=== PATIENT | male | born 1955 | race African-American/Black ===

== ENCOUNTER 2024-06-07 19:50 | Observation (INO) ==
[2024-06-07 20:55] LABS: BASOPHILS % (AUTO) 0.4 % (0.0-3.0); EOSINOPHILS % (AUTO) 0.8 % (0.0-7.0); HEMATOCRIT 47.9 % (42.0-52.0); HEMOGLOBIN 15.7 g/dl (14.0-18.0); IMMATURE GRANULOCYTE % (AUTO) 0.2 % (0.0-5.0); LYMPHOCYTES # (AUTO) 1.6 K/uL (0.60-3.4); LYMPHOCYTES % (AUTO) 32.1 (10.0-50.0); MEAN CORPUSCULAR HEMOGLOBIN 27.8 pg (27.0-31.0); MEAN CORPUSCULAR HGB CONC 32.8 (31.8-35.4); MEAN CORPUSCULAR VOLUME 84.9 fl (80.0-94.0); MONOCYTES # (AUTO) 0.4 K/uL (0.4-2.0); MONOCYTES % (AUTO) 8.2 (0-10); NEUTROPHILS # (AUTO) 2.9 K/ul (2.0-6.9); NEUTROPHILS % (AUTO) 58.3 % (42.2-75.2); PLATELET COUNT 260 10^3/uL (140-440); RDW COEFFICIENT OF VARIATION 12.9 % (11.6-14.8); RED BLOOD COUNT 5.64 10^6/ul (4.70-6.10); WHITE BLOOD COUNT 4.98 K/ul (4.2-10.2)
[2024-06-07 21:07] LABS: ALANINE AMINOTRANSFERASE 33.3 U/L (0-50); ALBUMIN 4.16 g/dL (3.5-5.0); ALKALINE PHOSPHATASE 75.9 U/L (56-119); ASPARTATE AMINO TRANSFERASE 26.2 U/L (17-59); BILIRUBIN,TOTAL 0.65 mg/dL (0.2-1.3); BLOOD UREA NITROGEN 30.2 mg/dL (9-20); CALCIUM 9.62 mg/dL (8.4-10.2); CARBON DIOXIDE 22.5 mmol/L (22-30.0); CREATININE 1.24 mg/dL (0.60-1.10); POTASSIUM 4.44 mmol/L (3.5-5.1); SODIUM 130.4 mmol/L (134.5-145); TOTAL PROTEIN 7.61 g/dL (6.3-8.2)
[2024-06-07 21:22] LABS: GLUCOSE 607.8 mg/dL (74-106)
[2024-06-07] MEDS: SODIUM CHLORIDE 1,000 ML IV ONE (21:22)
--- NOTE | 2024-06-07 21:27 | DI ---
EXAM: CHEST ONE-VIEW HISTORY: Chest pain and shortness of breath COMPARISON: Chest radiographs from 08/15/2022 FINDINGS: Calcified mediastinal lymph nodes are unchanged. The cardiomediastinal silhouette is laya l. The pulmonary vasculature is normal. No consolidating infiltrates are detected. No pneumothorac es or pleural effusions. IMPRESSION: 1. No acute cardiopulmonary disease. .
[2024-06-07 21:28] LABS: BILIRUBIN,URINE Negative (NEGATIVE); CLARITY,URINE Clear (CLEAR); COLOR,URINE Yellow (YELLOW); KETONES,URINE 1+ (NEGATIVE); LEUKOCYTE ESTERASE ,URINE Negative (NEGATIVE); NITRITE,URINE Negative (NEGATIVE); PH,URINE 5.5 (5-9); PROTEIN,URINE Negative (NEGATIVE); URINE, BLOOD Negative (NEGATIVE); UROBILINOGEN,URINE 0.2 (0.2)
[2024-06-07] MEDS: HUMULIN R (10ML) IVP STA (21:31)
[2024-06-07 21:35] LABS: GLUCOSE, URINE (UA) 3+ (NEGATIVE); SQUAMOUS EPITHELIAL CELL,UR 0-2 (0-5)
[2024-06-07] MEDS ORDERED: ZOFRAN SDV IVP PRN (21:44)
[2024-06-07] MEDS ORDERED: TYLENOL PO PRN (21:44)
[2024-06-07] MEDS ORDERED: DEXTROSE 50%-WATER ABBOJECT IVP PRN (21:44)
--- NOTE | 2024-06-07 21:44 | ED.PDOC ---
General ED Provider: Dr. MARK PARKER DO Chief Complaint: Diabetes Stated Complaint: 69-year-old male presents to the ER anxious because he has a recent diagnosis of diabetes. He was prescribed medications but there was some trouble getting them filled between the holiday season, whether and getting them to the appropriate pharmacies. The patient denies any chronic medical problems prior to this. Denies family history of diabetes or other acute cardiopulmonary processes. Denies recent illness or fever, headache chest pain shortness of breath, abdominal pain GI or issues. He does report polyuria and polydipsia. He is worried that he is not sure how to manage the diabetes on his own especially without the medications prescribed to him. He has not had any formal diabetes education regarding this. Time Seen by Provider: 06/07/24 20:13 Information Source: Patient Primary Care Provider: PAVAN MARTINEZ MD Nursing and Triage Documentation Reviewed and Agree: Yes What is Opioid Naive?: *Opioid Naive implies the patient is not already taking opioids or not chronically receiving opioids on a daily basis. *PRN dosing is not "usually" associated with tolerance. *Patients are at higher risk of over-sedation and aspiration. What is Opioid Tolerant?: *Opioid Tolerance implies less than the expected response to an opioid. *Acquired tolerance is defined by the patient taking 60mg of oral morphine daily (or equianalgesic dose of another opioid) for 1 week or more. *Often associated with chronic pain. *May take more than usual dose to achieve desired pain control. Review of Systems Review Of Systems Constitutional: Reports No symptoms All Other Systems: Reviewed and Negative [facility] Medical History Ulcer, stomach peptic K25.9 - Gastric ulcer, unspecified as acute or chronic, without hemorrhage or perforation (ICD-10) Family History Mother Kidney disorder Cancer Hypertension FATHER Cancer Hypertension Social History Smoking and tobacco status: Former smoker Physical Exam Physical Exam Appearance: Reports Well-appearing, No pain distress and Well-nourished Eyes: Reports JACKIE, EOMI and Conjunctiva clear ENT: Reports Oropharynx normal Neck: Supple Respiratory: Reports Airway patent and Respirations nonlabored Cardiovascular: Reports Pulses normal and Tachycardia GI/: Reports Soft and Nontender Musculoskeletal: Reports Normal strength and ROM intact Skin: Reports Warm, Dry and Normal color Neurological: Reports Sensation intact, Motor intact, Alert and Oriented Psychiatric: Reports Affect appropriate and Mood appropriate Interpretation EKG Interpretation EKG Interpretation By: ED Physician (Independently interpreted) Time of EKG #1: 21:02 Rate: Tachy Rhythm: Sinus Luebbering: NL ST Segment: Normal Interpretation: Nonischemic EKG Re-Evaluation Re-Evaluation Additional Comments: 69-year-old male recently diagnosed with diabetes presents to the ER concerned that he has not been able to get his medications and unsure how to manage his diabetes on his own. He is afebrile nontoxic doubt infectious etiology. No acute distress. He is tachycardic. Concern for DKA. Will rule this out with laboratory workup. Doubt other acute neurologic, cardiopulmonary or intra-abdominal processes. Labs reviewed and subsequently not consistent with DKA. He does not have an anion gap acidosis. He does have slight ketones in his serum. Nonetheless, his hyperglycemia will be treated with IV fluids and insulin. Given the complications of getting the proper supplies and education, I have recommended the patient be admitted for observation and the hospitalist services agreed and we appreciate their help in the management and education of this patient. Patient expresses understanding and are agreeable to this plan Course Course 06/07/24 20:25 06/07/24 20:25 Orders, Labs, Meds: Lab Review 06/07/24 06/07/24 20:25 21:19 WBC 4.98 RBC 5.64 Hgb 15.7 Hct 47.9 MCV 84.9 MCH 27.8 MCHC 32.8 RDW Coeff of Padmini 12.9 Plt Count 260 Immature Gran % (Auto) 0.2 Neut % (Auto) 58.3 Lymph % (Auto) 32.1 [place] % (Auto) 8.2 Eos % (Auto) 0.8 Baso % (Auto) 0.4 Neut # (Auto) 2.9 Lymph # (Auto) 1.6 [place] # (Auto) 0.4 Eos # (Auto) 0.0 Baso # (Auto) 0.0 Immature Gran # (Auto) 0.0 Sodium 130.4 L Potassium 4.44 Chloride 97.0 L Carbon Dioxide 22.5 Anion Gap 15.34 BUN 30.2 H Creatinine 1.24 H Estimated GFR (MDRD) 70.00 BUN/Creatinine Ratio 24.35 Glucose 607.8 H* Hemoglobin A1c 13.17 H Calcium 9.62 Total Bilirubin 0.65 AST 26.2 ALT 33.3 Alkaline Phosphatase 75.9 Total Protein 7.61 Albumin 4.16 Globulin 3.45 Albumin/Globulin Ratio 1.20 Urine Color Yellow Urine Clarity Clear Urine pH 5.5 Ur Specific [place] 1.010 Urine Protein Negative Urine Glucose (UA) 3+ H Urine Ketones 1+ H Urine Blood Negative Urine Nitrite Negative Urine Bilirubin Negative Urine Urobilinogen 0.2 Ur Leukocyte Esterase Negative Ur Squamous Epith Cells 0-2 Acetone, Qual Small Orders Category Date Time Status ADMIT OBSERVATION [PLACE PATIENT OBSERVATION] .TO ADMISSION 06/07/24 21:31 Active MEDSURG (MONITORED BED) EKG-(ED ONLY) Stat CARDIO 06/07/24 20:45 Completed TELEMETRY MONITORING TELE CARE 06/07/24 21:31 Active Glucose [ED ACCUCHECK ASSESSMENT] .ONCE EMERGENCY 06/07/24 21:20 Active ACETONE, QUALITATIVE Stat LAB 06/07/24 20:25 Completed CBC W/ AUTO DIFF Stat LAB 06/07/24 20:25 Completed CMP [COMPREHENSIVE METABOLIC PANEL] Stat LAB 06/07/24 20:25 Completed HEMOGLOBIN A1C Stat LAB 06/07/24 20:25 Completed URINALYSIS C & S IF INDICATED Stat LAB 06/07/24 21:19 Completed Insulin Regular, Human [Humulin R (10Ml)] Meds 06/07/24 21:23 Discontinued 15 unit IVP ONCE STA Sodium Chloride 0.9% [Sodium Chloride] 1,000 ml Meds 06/07/24 21:14 Active IV BOLUS CHEST, 1V AP ONLY Stat RADS 06/07/24 20:45 Completed Medications Generic Name Dose Route Start Last Admin Trade Name Freq PRN Reason Stop Dose Admin Sodium Chloride 1,000 mls @ 1,000 mls/hr 06/07/24 21:14 06/07/24 21:22 Sodium Chloride IV 06/07/24 22:13 1,000 mls/hr BOLUS ONE Administration Discontinued Medications Generic Name Dose Route Start Last Admin Trade Name Freq PRN Reason Stop Dose Admin Insulin Human Regular 15 unit 06/07/24 21:23 06/07/24 21:31 Insulin Regular, Human 100 Unit/Ml (10ml) Vial IVP 06/07/24 21:24 15 unit ONCE STA Administration Vital Signs: Temp Pulse Resp BP Pulse Ox 06/07/24 21:24 92 19 140/79 97 06/07/24 20:05 97.5 F L 112 H 18 134/101 H 97 Discharge Plan Discharge Patient Disposition: PLACED OBSERVATION Discharge Problem: Diabetes mellitus, new onset, Acute hyperglycemia Prescriptions: No Action tamsulosin 0.4 mg capsule 0.4 mg PO BEDTIME Qty: 30 2RF famotidine [Pepcid] 40 mg tablet 40 mg PO BID Qty: 30 0RF metformin 500 mg tablet 500 mg PO BID Qty: 60 2RF glucometer 1 unit Not Applicable DIRECTED Qty: 1 0RF Rx Instructions: Use to check blood sugar in the morning and at night to keep a log of your blood sugar as discussed Glucometer test strips See Rx Instructions .ROUTE .COMPLEX Qty: 60 3RF Rx Instructions: Please dispense 60 monthly x 3 refills. To use twice daily Did you review [place] [employer] for ALL controlled substances?: Not Applicable ED Provider: AMRK PARKER Condition: Stable
[2024-06-07 22:04] LABS: SARS COV-2 RNA RAPID NAAT NEGATIVE (NEGATIVE)
[2024-06-07 22:58] VITALS: BMI 22.9
[2024-06-07] MEDS: LACTATED RINGERS 1,000 ML IV SCH (23:22)
[2024-06-07] MEDS: LANTUS SUBCUT SCH (23:23)
[2024-06-08 05:31] LABS: BASOPHILS % (AUTO) 0.4 % (0.0-3.0); EOSINOPHILS # (AUTO) 0.1 K/ul (0.0-0.7); EOSINOPHILS % (AUTO) 1.1 % (0.0-7.0); HEMATOCRIT 41.4 % (42.0-52.0); HEMOGLOBIN 13.6 g/dl (14.0-18.0); IMMATURE GRANULOCYTE % (AUTO) 0.2 % (0.0-5.0); LYMPHOCYTES # (AUTO) 2.4 K/uL (0.60-3.4); LYMPHOCYTES % (AUTO) 42.9 (10.0-50.0); MEAN CORPUSCULAR HEMOGLOBIN 28.1 pg (27.0-31.0); MEAN CORPUSCULAR HGB CONC 32.9 (31.8-35.4); MEAN CORPUSCULAR VOLUME 85.5 fl (80.0-94.0); MONOCYTES # (AUTO) 0.4 K/uL (0.4-2.0); MONOCYTES % (AUTO) 7.8 (0-10); NEUTROPHILS # (AUTO) 2.6 K/ul (2.0-6.9); NEUTROPHILS % (AUTO) 47.6 % (42.2-75.2); PLATELET COUNT 213 10^3/uL (140-440); RDW COEFFICIENT OF VARIATION 12.9 % (11.6-14.8); RED BLOOD COUNT 4.84 10^6/ul (4.70-6.10); WHITE BLOOD COUNT 5.53 K/ul (4.2-10.2)
[2024-06-08 05:49] LABS: ALANINE AMINOTRANSFERASE 26.6 U/L (0-50); ALBUMIN 3.25 g/dL (3.5-5.0); ALKALINE PHOSPHATASE 63.2 U/L (56-119); ASPARTATE AMINO TRANSFERASE 22.6 U/L (17-59); BILIRUBIN,TOTAL 0.33 mg/dL (0.2-1.3); BLOOD UREA NITROGEN 26.6 mg/dL (9-20); CALCIUM 8.61 mg/dL (8.4-10.2); CARBON DIOXIDE 22.2 mmol/L (22-30.0); CHLORIDE 99.7 mmol/L (98-107); CREATININE 1.14 mg/dL (0.60-1.10); POTASSIUM 4.26 mmol/L (3.5-5.1); SODIUM 127.8 mmol/L (134.5-145); TOTAL PROTEIN 6.08 g/dL (6.3-8.2)
[2024-06-08 06:11] LABS: GLUCOSE 576.6 mg/dL (74-106)
[2024-06-08] MEDS: HUMALOG (10 ML VIAL) SUBCUT PRN (06:20)
[2024-06-08] MEDS: PEPCID PO SCH (09:14)
[2024-06-08] MEDS: GLUCOPHAGE PO SCH (09:15)
[2024-06-08 10:38] VITALS: BP 124/67; PULSE 76; RESP 14; TEMP 98
[2024-06-08 11:30] LABS: CHOLESTEROL 180.9 mg/dL (0-200); HDL CHOLESTEROL 38.3 mg/dL (35-60); TRIGLYCERIDES 182.4 mg/dL (0-150)
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
[2024-06-08] MEDS ORDERED: FLOMAX PO SCH (21:00)
== END 2024-06-08 13:30 | disposition home or self-care (01) ==
LOC: MEDSURG B 19:50 → ED 19:50 → MEDSURG B 22:40
PROVIDERS: ADMIT Hospitalist; ATTEND Physician Assistant